=== PATIENT | male | born 1955 | race Caucasian/White ===

== ENCOUNTER 2023-06-30 08:09 | Day surgery (SDC) | payer OTHER ==
[~2023-06-30 08:09] MED LIST: Ak-Dilate OPHTHALMIC*** 1.065 ML, Cyclogyl 1% OPHTH SOL 1.065 ML, GATIFLOXACIN 0.5% OPH... OP ONE; BETADINE 5% OPHTHALMIC 30 ML OP ONE; Lactated Ringers 1,000 ML IV SCH; NON-FORMULARY ITEM OP ONE; TETRACAINE 0.5% STERI-UNIT SOL OP ONE; cefUROXime sodium 0.005 GM in Sodium Chloride Flush 30 ML*** 0.5 ML IJ ONE
[2023-06-30] MEDS ORDERED: Epinephrine Preservative Free 1 MG/ML IJ ONE (08:10)
[2023-06-30] MEDS ORDERED: Lactated Ringers 1,000 ML IV ONE (08:20)
[2023-06-30] MEDS ORDERED: Lactated Ringers 1,000 ML IV SCH (08:30)
[2023-06-30] MEDS ORDERED: Zofran 4 MG/2 ML VIAL IV PRN (10:00)
[2023-06-30] MEDS ORDERED: ACETAZOLAMIDE 250 MG TABLET PO ONE (10:00)
[2023-06-30] MEDS ORDERED: SUBLIMAZE 100 MCG/2 ML ONE (10:08)
[2023-06-30] MEDS ORDERED: Versed 2 MG/2 ML Injection ONE (10:08)
[2023-06-30] MEDS ORDERED: DIPRIVAN 200 MG/20 ML IV ONE (10:08)
[2023-06-30 10:43] VITALS: RESP 16; TEMP 98
[2023-06-30 10:53] VITALS: BP 138/72; PULSE 50; O2SAT 97
== END 2023-06-30 11:07 | disposition home or self-care (01) ==
LOC: SDC 08:09
PROVIDERS: ATTEND Ophthalmology
DX: H25.812 Combined forms of age-related cataract, left eye (principal); E11.9 Type 2 diabetes mellitus without complications
CPT/HCPCS: 82947; C1780; J0171; J2250; J2704; J3010; A9270-GY